=== PATIENT | female | born 1995 | race Caucasian/White ===

== ENCOUNTER 2021-09-29 13:04 | Emergency (ER) | payer OTHER ==
[2021-09-29 17:32] VITALS: RESP 17
[2021-09-29] MEDS ORDERED: KETOROLAC 15 MG/ML 1 ML VIAL IM STA (17:32)
[2021-09-29 17:33] VITALS: BP 106/68; PULSE 81; TEMP 99.1
[2021-09-29] MEDS ORDERED: ALBUTEROL HFA INHALER INHALATION STA (18:05)
--- NOTE | 2021-09-29 18:21 | XR ---
EXAMINATION TYPE: XR chest 2V DATE OF EXAM: 09/29/2021 COMPARISON: 03/21/2012 HISTORY: Short of breath TECHNIQUE: FINDINGS: Heart and mediastinum are normal. Lungs are clear. Diaphragm is normal. Bony thorax is inta ct. IMPRESSION: Normal chest. No change.
--- NOTE | 2021-09-29 18:30 | ED ---
General Adult HPI - General Chief complaint: Shortness of Breath Stated complaint: SOB Time Seen by Provider: 09/29/21 17:00 Source: patient, RN notes reviewed, old records reviewed Mode of arrival: ambulatory Limitations: no limitations - History of Present Illness Initial comments: This is a 26 her old female presents emergency Department and states she is COVID positive. Patient states she just found out recently however symptoms began on September 21. Patient states she is not vaccinated. Patient states she has a cough and now that she has had a cough for quite a while it hurts in the right side of her chest every time she coughs. Patient states taking deep breath or sneezing makes it worse as well. Patient states if she doesn't take any depressed pain has gone away. Patient also states she feels very tight in the chest like she used to have when she had asthma. Patient denies any diarrhea. Patient states she does have loss of taste and smell. Patient denies any swelling to her legs or calf tenderness. - Related Data Home Medications Medication Instructions Recorded Confirmed Dextroamphetamine/Amphetamine 20 mg PO BID 09/29/21 09/29/21 [Adderall] Previous Rx's Medication Instructions Recorded Albuterol Inhaler [Ventolin Hfa 2 puff INHALATION RT-QID #18 gm 09/29/21 Inhaler] Allergies Allergy/AdvReac Type Severity Reaction Status Date / Time No Known Allergies Allergy Verified 09/29/21 17:41 Review of Systems ROS Statement: Those systems with pertinent positive or pertinent negative responses have been documented in the HPI. ROS Other: All systems not noted in ROS Statement are negative. Past Medical History Past Medical History: No Reported History Additional Past Medical History / Comment(s): adhd History of Any Multi-Drug Resistant Organisms: None Reported Past Surgical History: Appendectomy Past Psychological History: ADD/ADHD Smoking Status: Vaper Past Alcohol Use History: Occasional Past Drug Use History: None Reported General Exam - General Exam Comments Initial Comments: GENERAL: Patient is well-developed and well-nourished. Patient is nontoxic and well- hydrated and is in mild distress. ENT: Neck is soft and supple. No significant lymphadenopathy is noted. Oropharynx is clear. Moist mucous membranes. Neck has full range of motion without eliciting any pain. EYES: The sclera were anicteric and conjunctiva were pink and moist. Extraocular movements were intact and pupils were equal round and reactive to light. Eyelids were unremarkable. PULMONARY: Unlabored respirations. Good breath sounds bilaterally. No audible rales rhonchi or wheezing was noted. CARDIOVASCULAR: There is a regular rate and rhythm without any murmurs gallops or rubs. ABDOMEN: Soft and nontender with normal bowel sounds. SKIN: Skin is clear with no lesions or rashes and otherwise unremarkable. NEUROLOGIC: Patient is alert and oriented x3. Cranial nerves II through XII are grossly intact. Motor and sensory are also intact. Normal speech, volume and content. Symmetrical smile. MUSCULOSKELETAL: Normal extremities with adequate strength and full range of motion. No lower extremity swelling or edema. No calf tenderness. LYMPHATICS: No significant lymphadenopathy is noted PSYCHIATRIC: Normal psychiatric evaluation. Limitations: no limitations Course Vital Signs 09/29/21 09/29/21 09/29/21 13:54 17:30 17:32 Temperature 99.2 F 99.1 F Pulse Rate 82 81 Respiratory 18 17 17 Rate Blood Pressure 106/75 106/68 O2 Sat by Pulse 98 98 Oximetry Medical Decision Making - Medical Decision Making Chest x-ray shows no acute abnormality. EKG shows normal sinus rhythm at 69 bpm LA interval 222 QRS is under 4 QT interval is 416 QTC is 445. Patient's EKG shows no ST segment elevation or depression. Patient received an albuterol inhaler she felt as though this loosened up her chest. Patient refused Toradol. Disposition Clinical Impression: COVID-19, Chest wall pain Disposition: HOME SELF-CARE Instructions (If sedation given, give patient instructions): Coronavirus Disease 2019 (COVID-19) Prescriptions: Albuterol Inhaler [Ventolin Hfa Inhaler] 2 puff INHALATION RT-QID #18 gm Is patient prescribed a controlled substance at d/c from ED?: No Referrals: Koko Marks MD [Primary Care Provider] - 1-2 days Time of Disposition: 19:12
== END 2021-09-29 19:15 | disposition home or self-care (01) ==
LOC: EC 13:04
DX: U07.1 COVID-19 (principal); R07.89 Other chest pain; F90.9 Attention-deficit hyperactivity disorder, unspecified type; F17.290 Nicotine dependence, other tobacco product, uncomplicated; Z72.89 Other problems related to lifestyle
CPT/HCPCS: 71046; 93005; 94640; 96372; 99285

== ENCOUNTER → 2022-10-23 | Outpatient (CLI) | payer OTHER ==
--- NOTE | 2022-10-24 15:00 | MR ---
EXAMINATION TYPE: MR lumbar spine wo con DATE OF EXAM: 10/23/2022 4:19 PM COMPARISON: None. CLINICAL INDICATION:Female, 27 years old with history of M54.50, R20.0,R20.2, L81.9; TECHNIQUE: Multi planar, multi sequence imaging was performed utilizing: T1-weighted, T2-weighted, a nd turbo inversion recovery imaging of the lumbar spine. IV Contrast: None. FINDINGS: Alignment: The lumbar vertebral bodies have preserved heights and alignment. Cord: The conus medullaris and the distal spinal cord appear unremarkable with regards to their signa l intensity and morphology. Bones/Discs: Bone signal is within normal limits. T12-L1: No evidence of significant spinal canal stenosis or neural foraminal stenosis. L1-L2: No evidence of significant spinal canal stenosis or neural foraminal stenosis. L2-L3: No evidence of significant spinal canal stenosis or neural foraminal stenosis. L3-L4: No evidence of significant spinal canal stenosis or neural foraminal stenosis. L4-L5: No evidence of significant spinal canal stenosis or neural foraminal stenosis. L5-S1: No evidence of significant spinal canal stenosis or neural foraminal stenosis. IMPRESSION: No definitive evidence of disc herniation or significant spinal canal stenosis.
== END | disposition home or self-care (01) ==
LOC: RADMRIMAIN 15:42
PROVIDERS: ATTEND Psychiatry & Neurology Neurology
DX: M54.50 Low back pain, unspecified (principal); R20.0 Anesthesia of skin; R20.2 Paresthesia of skin; L81.9 Disorder of pigmentation, unspecified
CPT/HCPCS: 72148

== ENCOUNTER → 2023-06-17 | Outpatient (CLI) | payer OTHER ==
--- NOTE | 2023-06-18 07:26 | CA ---
Transthoracic Echo Report Name: Milana Lainez Age: 27 Gender: F : 1995 Exam Date: 06/17/2023 13:03 Exam Location: [facility] Ht (in): 65 Wt (lb): 110 Ordering Physician: Koko Marks MD Attending/Referring Phys: Kendrick WINTER [employer] Shelley Cesar EDIE Procedure CPT: Indications: I47.9 tachycardia Cardiac Hx: COPD Technical Quality: Good Contrast 1: Total Dose (mL): Contrast 2: Total Dose (mL): MEASUREMENTS (Male / Female) Normal Values 2D ECHO LV Diastolic Diameter PLAX 4.2 cm 4.2 - 5.9 / 3.9 - 5.3 cm LV Systolic Diameter PLAX 2.6 cm IVS Diastolic Thickness 0.7 cm 0.6 - 1.0 / 0.6 - 0.9 cm LVPW Diastolic Thickness 0.8 cm 0.6 - 1.0 / 0.6 - 0.9 cm LV Relative Wall Thickness 0.4 RV Internal Dim ED PLAX 2.3 cm LA Systolic Diameter LX 2.4 cm 3.0 - 4.0 / 2.7 - 3.8 cm M-MODE Aortic Root Diameter MM 3.0 cm MV E Point Septal Separation 0.3 cm AV Cusp Separation MM 2.0 cm DOPPLER AV Peak Velocity 91.1 cm/s AV Peak Gradient 3.3 mmHg MV Area PHT 5.5 cm??? Mitral E Point Velocity 73.3 cm/s Mitral A Point Velocity 64.4 cm/s Mitral E to A Ratio 1.1 MV Deceleration Time 136.9 ms MV E' Velocity 12.4 cm/s Mitral E to MV E' Ratio 5.9 TR Peak Velocity 205.6 cm/s TR Peak Gradient 16.9 mmHg Right Ventricular Systolic Press 21.9 mmHg FINDINGS Left Ventricle Left ventricular ejection fraction is estimated at 50-55 %. Left ventricular cavity size normal. Left ventricular wall thickness normal. Right Ventricle Normal right ventricular size. Right ventricular systolic pressure within normal limits. Right Atrium Normal right atrial size. Left Atrium Normal left atrial size. Mitral Valve Mitral valve prolapse. Trace mitral regurgitation. Aortic Valve Trileaflet aortic valve. No aortic valve stenosis or regurgitation. Tricuspid Valve Structurally normal tricuspid valve. Mild tricuspid regurgitation. Pulmonic Valve Structurally normal pulmonic valve. Pericardium Normal pericardium. No pericardial effusion. Aorta Normal size aortic root and proximal ascending aorta. CONCLUSIONS Normal LV systolic function Normal RV systolic function Mitral valve prolapse with mild mitral regurgitation Previewed by: Dr. Claudio Bentley MD (Electronically Signed) Final Date: 18 June 2023 07:25
== END | disposition home or self-care (01) ==
LOC: RADECHMAIN 12:52
PROVIDERS: ATTEND Family Medicine
DX: I34.0 Nonrheumatic mitral (valve) insufficiency (principal); I47.9 Paroxysmal tachycardia, unspecified
CPT/HCPCS: 93306